=== PATIENT | female | born 1950 | race Caucasian/White ===

== ENCOUNTER 2016-09-28 19:14 | Emergency (ER) | payer OTHER ==
[~2016-09-28] VITALS: Ht 162.6 cm; Wt 64.2 kg
[2016-09-28 21:35] VITALS: BP 141/77
== END 2016-09-28 21:46 | disposition home or self-care (01) ==
LOC: EME 19:14
DX: R53.83 Other fatigue (principal); R53.1 Weakness; Z76.5 Malingerer [conscious simulation]; R63.4 Abnormal weight loss; Z68.24 Body mass index [BMI] 24.0-24.9, adult; F29 Unspecified psychosis not due to a substance or known physiological condition
CPT/HCPCS: 80048; 81003; 85027; 90839; 99281; 99283; G0480